=== PATIENT | male | born 1990 | race Caucasian/White ===

== ENCOUNTER 2018-01-21 19:48 | Inpatient (IN) ==
--- NOTE | 2018-01-21 22:21 | CT ---
EXAM DATE: 01/21/2018 10:01 PM EDT AGE/SEX: 27 years / Male INDICATIONS: Post op abscess drainage today at [facility]. Come's in with severe pain. CLINICAL DATA: This is the patient's initial encounter. Patient reports that signs and symptoms have been present for 1 day and indicates a pain score of 10/10. MEDICAL/SURGICAL HISTORY: None. None. RADIATION DOSE: 12.25 CTDI (mGy) COMPARISON: No prior exams available for comparison. TECHNIQUE: Multiple contiguous axial images were acquired using a multirow detector CT scanner witho ut contrast. Multiplanar reconstruction was performed in the sagittal and coronal planes. Using aut omated exposure control and adjustment of the mA and/or kV according to patient size, radiation dose was kept as low as reasonably achievable to obtain optimal diagnostic quality images. DICOM format i mage data is available electronically for review and comparison. FINDINGS: Ill-defined soft tissue edema of the upper arm. Cutaneous staple line is seen anteriorly. There is ed mario in and around the biceps brachia muscle. Multiple foci of gas are seen in the soft tissues adjace nt to the biceps muscle. Surgical drain is in place extending into the biceps muscle. Discretely defi aidee rounded fluid collection is not seen. No evidence of focal bone erosion. No evidence fracture. CONCLUSION: Soft tissue edema and gas and around the biceps muscle. Surgical drain also seen within the biceps mu scle and cutaneous jeanette overlie muscle. Findings indicate recent surgery. Edema and gas are nonspe cific and could represent immediate postsurgical findings or findings of infection. No defined absces s or bone erosion identified. Electronically signed by: Ariel Watkins MD 01/21/2018 10:20 PM EDT
[2018-01-21 23:15] LABS: Baso % (Auto) 0.2 % (0.0-2.0); Eos % (Auto) 0.2 % (0.0-4.0); Hemoglobin 12.3 gm/dL (13.0-17.0); Lymph # (Auto) 2.7 th/mm3 (1.0-4.8); Lymph % (Auto) 14.6 % (9.0-44.0); Mean Corpuscular HGB Conc 33.2 % (32.0-36.0); Mean Corpuscular Hemoglobin 29.5 pg (27.0-34.0); Mean Corpuscular Volume 88.7 fL (80.0-100.0); Mean Platelet Volume 9.3 fL (7.0-11.0); Mono # (Auto) 1.5 th/mm3 (0.0-0.9); Mono % (Auto) 8.3 % (0.0-8.0); Neut # (Auto) 14.2 th/mm3 (1.8-7.7); Neut % (Auto) 76.7 % (16.0-70.0); Platelet Count 217 th/mm3 (150-450); Red Blood Count 4.17 mil/mm3 (4.50-5.90); Red Cell Distribution Width 13.7 % (11.6-17.2); White Blood Count 18.5 th/mm3 (4.0-11.0)
[2018-01-21 23:34] LABS: Alanine Aminotransferase 33 U/L (12-78); Albumin 3.1 g/dL (3.4-5.0); Anion Gap 10 meq/L (5-15); Aspartate Aminotransferase 20 U/L (15-37); Blood Urea Nitrogen 7 mg/dL (7-18); Calcium 8.8 mg/dL (8.5-10.1); Carbon Dioxide 25.3 meq/L (21.0-32.0); Chloride 109 meq/L (98-107); Glomerular Filtration Rate Greater Than 89 mL/min (>89); Glucose,Random 83 mg/dL (74-106); Potassium 3.9 meq/L (3.5-5.1); Sodium 144 meq/L (136-145)
[2018-01-21 23:36] LABS: Alkaline Phosphatase 84 U/L (45-117); Total Protein 7.4 g/dL (6.4-8.2)
[2018-01-22] MEDS ORDERED: Ciprofloxacin 400 MG/200 ML 400 MG/200 ML PIGGYBACK IV.SIG ONE (00:29)
[2018-01-22] MEDS ORDERED: Vancomycin Inj 1,250 MG in Sodium Chlor 0.9% Inj 250 ML IV.SIG ONE (00:29)
[2018-01-22] MEDS ORDERED: Clindamycin 900 mg/NS Premix 900 MG/50 ML PIGGYBACK IV.SIG STA (00:29)
[2018-01-22] MEDS ORDERED: Bisacodyl 10 MG Supp RECTAL PRN (00:32)
[2018-01-22] MEDS ORDERED: Acetaminophen 325 MG Tablet PO PRN (00:32)
--- NOTE | 2018-01-22 00:40 | ED ---
HPI General Chief complaint: Medical Clearance Stated complaint: Medical clear Time Seen by Provider: 01/21/18 21:09 Source: patient Mode of arrival: ambulatory Limitations: no limitations History of Present Illness HPI narrative: Patient is a 27 year old male who comes in with an infection to his left upper arm. He was at [facility] where he had a large abscess drained from his muscle today. He says he did not like the way he was treated there, so he left. He has a drain in place and he says he knows he needs antibiotics, so he came here. He denies any fevers. He says this started a few days ago with pain to his lower arm that spread to the upper arm. Severity is mild to moderate. Related Data Allergies Allergy/AdvReac Type Severity Reaction Status Date / Time penicillin G Allergy Severe Anaphylaxis Verified 01/21/18 20:18 Iodinated Contrast- Oral and Allergy Edema Verified 01/21/18 20:18 IV Dye [Contrast] CILLINS Allergy Intermediate RASH/AIRWAY Uncoded 06/06/06 16:38 Review of Systems ROS: all other systems reviewed are negative Constitutional Denies chills and Denies fever(s) ENT Denies dizziness Cardiovascular Denies chest pain and Denies dyspnea Respiratory Denies cough Gastrointestinal Denies nausea and Denies vomiting Musculoskeletal Reports myalgias Integumentary/Breasts Reports wounds Neurologic Denies focal weakness and Denies numbness PMFSH Medical History Medical History Asthma (Acute) Surgical History Surgical History History of surgery on upper extremity (Acute) Social History Social History Substance History: Past History Smoking Status: Current every day smoker Tobacco Type: Cigarettes How Often Do You Have a Drink Containing Alcohol: Monthly or less Recent Travel in [facility] within the Last 8 Weeks: No Recent Out of Country Travel within the Last 8 Weeks: No Immunization History Tetanus Immunization: >5 Years Hx Influenza Vaccine This Season: No Exam Narrative Exam Narrative: GENERAL: Awake and alert, in no acute distress. SKIN: Drain in place to the left upper arm, bandaged. HEAD: Atraumatic. Normocephalic. EYES: Pupils equal and round. No scleral icterus. ENT: Mucous membranes pink and moist. NECK: Trachea midline. No JVD. CARDIOVASCULAR: Regular rate and rhythm. No murmur appreciated. RESPIRATORY: No accessory muscle use. Clear to auscultation. Breath sounds equal bilaterally. MUSCULOSKELETAL: No obvious deformities. No clubbing. No cyanosis. Left arm bandaged with drain in place. NEUROLOGICAL: Awake and alert. No obvious cranial nerve deficits. Motor grossly within normal limits. Normal speech. PSYCHIATRIC: Appropriate mood and affect; insight and judgment normal. Course Initial Documented Vital Signs Temperature 98.4 F 01/21/18 20:18 Pulse Rate 99 H 01/21/18 20:18 Respiratory Rate 18 01/21/18 20:18 Blood Pressure 156/94 H 01/21/18 20:18 Pulse Oximetry 99 01/21/18 20:18 Last Documented Vital Signs Temperature 98.4 F 01/21/18 20:18 Pulse Rate 75 01/21/18 22:40 Respiratory Rate 18 01/21/18 22:40 Blood Pressure 155/108 H 01/21/18 22:40 Pulse Oximetry 99 01/21/18 22:40 Medical Decision Making [facility] Narrative Medical decision making narrative: Patient is a 27-year-old male who comes in due to an abscess that was drained on his left arm surgically today. Arm is bandaged with a drain in place. Records obtained from [facility] indicate that Dr. Vasques orthopedics drained His arm today. He was on Cipro, clindamycin, vancomycin there. This was ordered for him. I spoke with the PA for Dr. Vasques who says the patient needs to be admitted for IV antibiotics. Patient admitted for further management. Medical Screen Exam Complete: Yes Emergency Medical Condition: Yes Differential Diagnosis Differential Diagnosis: Cellulitis versus abscess versus osteomyelitis Medical Records Medical records reviewed: Yes I reviewed the patient's medical records. Lab Data Lab results reviewed: Yes I reviewed the patient's lab results. Result diagrams: 01/21/18 22:49 01/21/18 22:49 Lab Results 01/21/18 01/21/18 Range/Units 22:49 22:49 WBC 18.5 H (4.0-11.0) th/mm3 RBC 4.17 L (4.50-5.90) mil/mm3 Hgb 12.3 L (13.0-17.0) gm/dL Hct 37.0 L (39.0-51.0) % MCV 88.7 (80.0-100.0) fL MCH 29.5 (27.0-34.0) pg MCHC 33.2 (32.0-36.0) % RDW 13.7 (11.6-17.2) % Plt Count 217 (150-450) th/mm3 MPV 9.3 (7.0-11.0) fL Neut % (Auto) 76.7 H (16.0-70.0) % Lymph % (Auto) 14.6 (9.0-44.0) % Mcintosh % (Auto) 8.3 H (0.0-8.0) % Eos % (Auto) 0.2 (0.0-4.0) % Baso % (Auto) 0.2 (0.0-2.0) % Neut # (Auto) 14.2 H (1.8-7.7) th/mm3 Lymph # (Auto) 2.7 (1.0-4.8) th/mm3 Mcintosh # (Auto) 1.5 H (0.0-0.9) th/mm3 Eos # (Auto) 0.0 (0.0-0.4) th/mm3 Baso # (Auto) 0.0 (0.0-0.2) th/mm3 WBC Differential . Differential Comment Auto diff final Sodium 144 (136-145) meq/L Potassium 3.9 (3.5-5.1) meq/L Chloride 109 H (98-107) meq/L Carbon Dioxide 25.3 (21.0-32.0) meq/L Anion Gap 10 (5-15) meq/L BUN 7 (7-18) mg/dL Creatinine 0.63 (0.60-1.30) mg/dL Estimated GFR Greater than 89 (>89) mL/min Random Glucose 83 (74-106) mg/dL Calcium 8.8 (8.5-10.1) mg/dL Total Bilirubin 0.8 (0.2-1.0) mg/dL AST 20 (15-37) U/L ALT 33 (12-78) U/L Alkaline Phosphatase 84 (45-117) U/L Total Protein 7.4 (6.4-8.2) g/dL Albumin 3.1 L (3.4-5.0) g/dL Imaging Data Radiologist's impression: Humerus CT 01/21/18 21:27 CONCLUSION: Soft tissue edema and gas and around the biceps muscle. Surgical drain also seen within the biceps muscle and cutaneous jeanette overlie muscle. Findings indicate recent surgery. Edema and gas are nonspecific and could represent immediate postsurgical findings or findings of infection. No defined abscess or bone erosion identified. Discharge Plan Discharge Disposition Patient Disposition: 30 Still Patient Discharge Condition Condition: Stable Discharge Details Diagnosis: Cellulitis and abscess of upper arm and forearm Physicians Team ED Provider: Odessa Faye Primary Care Provider: UNKNOWN, Attending Provider: Cristin Knight Other Providers: Jessee Vasques Discharge Interventions Interventions: Vital Signs Last Done: 01/21/18 22:40 Status ED Status: Admitted Patient
--- NOTE | 2018-01-22 01:08 | P.HPIM ---
History of Present Illness Primary Care Physician: UNKNOWN History of Present Illness: This is a 27-year-old male with PMH of IVDU who presented to ER after having LUE Biceps Abscess drained at [facility]. Per records, pt initially presented to [facility] 01/17/18 for LUE swelling/erythema, diagnosed w/ thrombophlebitis and sent out on antibiotics, however pt didn't fill prescription. Returned to [facility] on 01/20/18 w/ worsening erythema/pain, admitted for Sepsis w/ Left Biceps Cellulitis and Abscess, CT LUE showing diffuse myositis of biceps w/ abscess, Doppler LUE negative for DVT. Was seen by Dr. Martinez and underwent I& D w/ drain placement 01/21/18, has been on Vanc/Clinda/Cipro. States he LEFT AMA from because he was upset that nursing staff wouldn't allow his mother to visit him. Reports no IVDU for 2wks. On arrival, BP 156/94, HR 99, O2 sat 99% on RA, Afebrile. WBC 18.5. Chemistry unremarkable. CT Humerus soft tissue edema and gas around biceps muscle, surgical drain seen within the biceps muscle. Dr. Martinez consulted, recommended admission for continued antibiotics. - Diagnosis (1) Cellulitis and abscess of upper arm and forearm (2) IVDU (intravenous drug user) Inpatient Certification: I certify that the inpatient services were ordered in accordance with Medicare regulations governing the order. This includes certification that hospital inpatient services are reasonable and necessary and in the case of services not specified as inpatient-only under 42 CFR 419.22(n), that they are appropriately provided as inpatient services in accordance to with the 2-midnight benchmark under 43 CFR 412.3(e) Estimated Total Length of Stay (Days): 2 Plans for Post Hospital Care: Not yet determined Review of Systems PAST FAMILY HISTORY: Reviewed. No h/o DM or CAD All other systems reviewed negative except as stated in HPI PMFSH - History History Provided By: Patient - Medical History Medical History: Medical History (Last Reviewed 01/22/18 @ 00:46 by Odessa Faye MD) Asthma - Surgical History Surgical History: Surgical History (Last Reviewed 01/22/18 @ 00:46 by Odessa Faye MD) History of surgery on upper extremity - Tobacco History Tobacco Use In Past 30 Days: Yes Smoking Status: Current every day smoker Tobacco Type: Cigarettes - Alcohol History How Often Do You Have a Drink Containing Alcohol: Monthly or less - Substance Use History Substance History: Past History - Travel History Recent Travel in the [place] Within the Last 8 Weeks: No Recent Travel Out of the Country Within the Last 8 Weeks: No - Immunization History Tetanus Immunization: >5 Years Hx Influenza Vaccine This Season: No Medications and Allergies Active Medications: Active Medications Acetaminophen (Tylenol) 650 mg PO Q4H PRN PRN Reason: Temp > 100.4 Al Hydroxide/Mg Hydroxide (Milk Of Magnesia Liq) 30 ml PO Q12H PRN PRN Reason: Mild Constipation Bisacodyl (Dulcolax Supp) 10 mg RECTAL DAILY PRN PRN Reason: SEVERE CONSITIPATION Ciprofloxacin/Dextrose (Cipro 400 Mg/200 Ml Inj) 400 mg in 200 mls @ 200 mls/ hr IV.SIG ONCE ONE Stop: 01/22/18 01:28 Vancomycin HCl 1,250 mg/ (Sodium Chloride) 262.5 mls @ 250 mls/hr IV.SIG ONCE ONE Stop: 01/22/18 01:31 Lactulose (Lactulose Liq) 30 ml PO DAILY PRN PRN Reason: SEVERE CONSITIPATION Ondansetron HCl (Zofran Inj) 4 mg IV.PUSH Q6H PRN PRN Reason: NAUSEA OR VOMITING Senna/Docusate Sodium (Eva-Colace) 1 tab PO BID CONY Sennosides (Senokot) 17.2 mg PO Q12H PRN PRN Reason: Moderate Constipation Allergies Allergy/AdvReac Type Severity Reaction Status Date / Time penicillin G Allergy Severe Anaphylaxis Verified 01/21/18 20:18 Iodinated Contrast- Oral and Allergy Edema Verified 01/21/18 20:18 IV Dye [Contrast] CILLINS Allergy Intermediate RASH/AIRWAY Uncoded 06/06/06 16:38 Home Medications Medication Instructions Recorded Confirmed Type No Known Home Medications 01/22/18 01/22/18 History Exam Vital signs: Vital Signs 01/21/18 20:18 01/21/18 22:40 Temperature 98.4 F Pulse Rate 99 H 75 Respiratory Rate 18 18 Blood Pressure 156/94 H 155/108 H Pulse Oximetry 99 99 Intake & Output 01/21/18 01/21/18 01/22/18 06:59 18:59 06:59 Weight 79.379 kg Narrative: PE: GENERAL: Pleasant young white male in no acute distress. SKIN: Focused skin assessment warm and dry. HEENT: PERRLA, EOMI. No scleral icterus or conjunctival pallor. No lid lag or facial droop. CARDIOVASCULAR: Regular rate and rhythm. No obvious murmurs to auscultation. No chest tenderness to palpation. RESPIRATORY: No obvious rhonchi or wheezing. Clear to auscultation. Breath sounds equal bilaterally. GASTROINTESTINAL: Abdomen soft, non-tender, nondistended. BS normal. MUSCULOSKELETAL: Extremities without clubbing, cyanosis, or edema. No obvious deformities. LUE bandage in place, +drain. NEUROLOGICAL: Awake, alert and oriented x4. No focal neurologic deficits. Moving both upper and lower extremities spontaneously. PSYCHIATRIC: Appropriate mood and affect. Insight and judgment normal. Results - Labs CBC & Chem 7: 01/21/18 22:49 01/21/18 22:49 Labs: Short CBC 01/21/18 Range/Units 22:49 WBC 18.5 H (4.0-11.0) th/mm3 Hgb 12.3 L (13.0-17.0) gm/dL Hct 37.0 L (39.0-51.0) % Plt Count 217 (150-450) th/mm3 BMP 01/21/18 22:49 Sodium 144 Potassium 3.9 Chloride 109 H Carbon Dioxide 25.3 BUN 7 Creatinine 0.63 Calcium 8.8 Liver Function 01/21/18 Range/Units 22:49 Total Bilirubin 0.8 (0.2-1.0) mg/dL AST 20 (15-37) U/L ALT 33 (12-78) U/L Alkaline Phosphatase 84 (45-117) U/L Albumin 3.1 L (3.4-5.0) g/dL - Imaging Impressions Humerus CT 01/21/18 21:27 CONCLUSION: Soft tissue edema and gas and around the biceps muscle. Surgical drain also seen within the biceps muscle and cutaneous jeanette overlie muscle. Findings indicate recent surgery. Edema and gas are nonspecific and could represent immediate postsurgical findings or findings of infection. No defined abscess or bone erosion identified. Caprini VTE Risk Assessment Caprini VTE Risk Assessment: No/Low Risk (score <= 1) Caprini Risk Assessment Model: Point Value = 1 Point Value = 2 Point Value = 3 Point Value = 5 Age 41-60 Minor surgery BMI > 25 kg/m2 Swollen legs Varicose veins or History of unexplained or recurrent spontaneous Oral contraceptives or hormone replacement Sepsis (< 1 month) Serious lung disease, including pneumonia (< 1 month) Abnormal pulmonary function Acute myocardial infarction Congestive heart failure (< 1 month) History of inflammatory bowel disease Medical patient at bed rest Age 61-74 Arthroscopic surgery Major open surgery (> 45 min) Laparoscopic surgery (> 45 min) Malignancy Confined to bed (> 72 hours) Immobilizing plaster cast Central venous access Age >= 75 History of VTE Family history of VTE Factor V Leiden Prothrombin [id number] Lupus anticoagulant Anticardiolipin antibodies Elevated serum homocysteine Heparin-induced thrombocytopenia Other congenital or acquired thrombophilia Stroke (< 1 month) Elective arthroplasty Hip, pelvis, or leg fracture Acute spinal cord injury (< 1 month) Prophylaxis Regimen: Total Risk Factor Score Risk Level Prophylaxis Regimen 0-1 Low Early ambulation 2 Moderate Order ONE of the following: *Sequential Compression Device (SCD) *Heparin 5000 units SQ BID 3-4 Higher Order ONE of the following medications: *Heparin 5000 units SQ TID *Enoxaparin/Lovenox 40 mg SQ daily (WT < 150 kg, CrCl > 30 mL/min) *Enoxaparin/Lovenox 30 mg SQ daily (WT < 150 kg, CrCl > 10-29 mL/min) *Enoxaparin/Lovenox 30 mg SQ BID (WT < 150 kg, CrCl > 30 mL/min) AND/OR *Sequential Compression Device (SCD) 5 or more Highest Order ONE of the following medications: *Heparin 5000 units SQ TID (Preferred with Epidurals) *Enoxaparin/Lovenox 40 mg SQ daily (WT < 150 kg, CrCl > 30 mL/min) *Enoxaparin/Lovenox 30 mg SQ daily (WT < 150 kg, CrCl > 10-29 mL/min) *Enoxaparin/Lovenox 30 mg SQ BID (WT < 150 kg, CrCl > 30 mL/min) AND *Sequential Compression Device (SCD) Assessment and Plan - Assessment (1) Cellulitis and abscess of upper arm and forearm Status: Acute (2) IVDU (intravenous drug user) Code(s): F19.90 - Other psychoactive substance use, unspecified, uncomplicated Status: Acute - Plan A/P: 1. LUE Cellulitis/Abscess: recent admit to [facility] 01/20/18, CT LUE w/ diffuse myositis and abscess of biceps muscle, s/p I&D w/ drain placement by Dr. Martinez 01/21/18, LEFT AMA and presents here for admission. CT Humerus w/ soft tissue edema and gas w/ surgical drain indicative of recent surgery, images reviewed. Records obtained from [facility] and in chart, pending micro from surgical cultures. Continue w/ IV Vanc/Cipro/Clinda, consult ID for further eval/recommendations. Consult Dr. Martinez. 2. IVDU: Reports last use 2wks ago, Ativan prn as needed. 3. DVT Prophylaxis: SCD/Teds 4. Social work for d/c planning as needed 5. Case discussed w/ ER physician at length, labs/records/imaging reviewed by me.
[2018-01-22] MEDS: Morphine Inj 4 MG/ML Vial IV.PUSH PRN ×4 (02:13→11:35)
[2018-01-22] MEDS ORDERED: Vancomycin Consult Pharmacy OTHER PRN (02:34)
[2018-01-22] MEDS: Clindamycin 900 mg/NS Premix 900 MG/50 ML PIGGYBACK IV.SIG SCH ×2 (08:09→15:43)
[2018-01-22] MEDS: Senna/Docusate Sodium 8.6/50 MG Tablet PO SCH ×2 (08:13→22:25)
[2018-01-22] MEDS: Vancomycin Inj 1,000 MG in Sodium Chlor 0.9% Inj 250 ML IV.SIG SCH ×2 (09:26→17:00)
--- NOTE | 2018-01-22 10:22 | P.PNOP ---
Subjective Interval history: Irrigation debridement yesterday at [facility] for left biceps abscess. Left AMA and presented to emergency department [place] Physical Exam Vital signs: Vital Signs 01/21/18 20:18 01/21/18 22:40 01/22/18 01:44 Temperature 98.4 F 98.2 F Pulse Rate 99 H 75 85 Respiratory Rate 18 18 20 Blood Pressure 156/94 H 155/108 H 120/67 Pulse Oximetry 99 99 99 01/22/18 04:00 01/22/18 08:00 Temperature 98.2 F 98.6 F Pulse Rate 95 H 94 H Respiratory Rate 20 20 Blood Pressure 122/77 148/86 H Pulse Oximetry 99 95 Intake & Output 01/21/18 01/22/18 01/22/18 18:59 06:59 18:59 Intake Total 462.5 / 462.5 100 / 100 Output Total Balance 452.5 / 452.5 100 / 100 Weight 78.7 kg Intake: IV 462.5 / 462.5 100 / 100 Cipro 400 MG/200 ML Inj 400 mg 200 / 200 In 200 ml @ 200 mls/hr IV.SIG ONCE ONE Rx#:[id number] Cleocin 900 mg/NS Premix 900 mg 100 / 100 In 50 ml @ 100 mls/hr IV.SIG Q8H CONY Rx#:[id number] Vancomycin Inj 1,250 MG In NS 262.5 / 262.5 Inj 250 ML @ 250 mls/hr IV.SIG ONCE ONE Rx#:[id number] Output: Wound Drainage Left Upper Arm Other: # Voids 1 Date of Last Bowel Movement 01/20/18 Weight On Admission 77.7 kg Narrative: Left upper extremity: Clean dry dressings intact with drain in place. Intact sensation distally with full extension flexion of all fingers. He has some tenderness with extension of the elbow over the biceps. Elbow range of motion is from 20 -110 Results - Labs CBC & Chem 7: 01/21/18 22:49 01/21/18 22:49 Laboratory Results - last 24 hr 01/21/18 01/21/18 22:49 22:49 WBC 18.5 H RBC 4.17 L Hgb 12.3 L Hct 37.0 L MCV 88.7 MCH 29.5 MCHC 33.2 RDW 13.7 Plt Count 217 MPV 9.3 Neut % (Auto) 76.7 H Lymph % (Auto) 14.6 Cherry % (Auto) 8.3 H Eos % (Auto) 0.2 Baso % (Auto) 0.2 Neut # (Auto) 14.2 H Lymph # (Auto) 2.7 Cherry # (Auto) 1.5 H Eos # (Auto) 0.0 Baso # (Auto) 0.0 WBC Differential . Differential Comment Auto diff final Sodium 144 Potassium 3.9 Chloride 109 H Carbon Dioxide 25.3 Anion Gap 10 BUN 7 Creatinine 0.63 Estimated GFR Greater than 89 Random Glucose 83 Calcium 8.8 Total Bilirubin 0.8 AST 20 ALT 33 Alkaline Phosphatase 84 Total Protein 7.4 Albumin 3.1 L - Imaging Impressions Humerus CT 01/21/18 21:27 CONCLUSION: Soft tissue edema and gas and around the biceps muscle. Surgical drain also seen within the biceps muscle and cutaneous jeanette overlie muscle. Findings indicate recent surgery. Edema and gas are nonspecific and could represent immediate postsurgical findings or findings of infection. No defined abscess or bone erosion identified. Assessment and Plan - Assessment and Plan Abscess with irrigation debridement of left biceps POD 1 Begin daily dressing changes POD 2. Xeroform over the incision and continue drain care Consultation for infectious disease for antibiotic management Occupational therapy for passive and active range of motion of shoulder and elbow
[2018-01-22] MEDS: Ciprofloxacin 400 MG/200 ML 400 MG/200 ML PIGGYBACK IV.SIG SCH ×2 (11:35→23:05)
[2018-01-23] MEDS: Clindamycin 900 mg/NS Premix 900 MG/50 ML PIGGYBACK IV.SIG SCH ×3 (01:26→18:03)
[2018-01-23] MEDS ORDERED: Pharmacy Ordered Lab Info OTHER ONE (01:45)
[2018-01-23] MEDS: Vancomycin Inj 1,000 MG in Sodium Chlor 0.9% Inj 250 ML IV.SIG SCH ×4 (02:07→20:51)
[2018-01-23 07:32] LABS: Baso # (Auto) 0.1 th/mm3 (0.0-0.2); Baso % (Auto) 0.9 % (0.0-2.0); Eos # (Auto) 0.1 th/mm3 (0.0-0.4); Eos % (Auto) 1.7 % (0.0-4.0); Hematocrit 35.7 % (39.0-51.0); Hemoglobin 11.9 gm/dL (13.0-17.0); Mean Corpuscular HGB Conc 33.3 % (32.0-36.0); Mean Corpuscular Hemoglobin 29.9 pg (27.0-34.0); Mean Corpuscular Volume 89.7 fL (80.0-100.0); Mean Platelet Volume 9.8 fL (7.0-11.0); Mono # (Auto) 0.5 th/mm3 (0.0-0.9); Mono % (Auto) 5.9 % (0.0-8.0); Neut # (Auto) 4.3 th/mm3 (1.8-7.7); Neut % (Auto) 53.5 % (16.0-70.0); Platelet Count 247 th/mm3 (150-450); Red Blood Count 3.98 mil/mm3 (4.50-5.90); Red Cell Distribution Width 14.2 % (11.6-17.2)
[2018-01-23 07:46] LABS: Alanine Aminotransferase 62 U/L (12-78); Albumin 2.4 g/dL (3.4-5.0); Anion Gap 7 meq/L (5-15); Aspartate Aminotransferase 35 U/L (15-37); Calcium 8.4 mg/dL (8.5-10.1); Carbon Dioxide 26.6 meq/L (21.0-32.0); Chloride 111 meq/L (98-107); Glomerular Filtration Rate Greater Than 89 mL/min (>89); Glucose,Random 101 mg/dL (74-106); Sodium 145 meq/L (136-145)
[2018-01-23 07:56] LABS: Alkaline Phosphatase 72 U/L (45-117); Blood Urea Nitrogen 11 mg/dL (7-18); Total Protein 6.1 g/dL (6.4-8.2)
[2018-01-23] MEDS: Senna/Docusate Sodium 8.6/50 MG Tablet PO SCH ×2 (09:54→20:51)
[2018-01-23] MEDS: Ciprofloxacin 400 MG/200 ML 400 MG/200 ML PIGGYBACK IV.SIG SCH ×2 (11:36→23:35)
--- NOTE | 2018-01-23 16:20 | P.CONID ---
History of Present Illness Service: Infectious disease Consult date: 01/23/18 Requesting Physician: Ronak Field Reason for Consult: Evaluate patient with muscle abscess, assist with Abx Primary Care Provider: UNKNOWN History of Present Illness: Patient seen and examined. Records reviewed. Patient is a 27-year-old male, presented to the hospital for further management of the abscess in his left upper extremity. His problem started around January 18 when he started having some pain over his left antecubital fossa. Patient has known IV drug use, but denies any injection in his upper arm. He stated that the last time he had used IV drugs was about 2 weeks prior to his admission at [facility]. He does not recall having any injury. He does a lot of manual work. He went to the emergency room at [facility] on January 18, and looks like he was diagnosed with some kind of a phlebitis, was given some medications and I believe some antibiotics. Patient however did not take his medication, and soon after that he started noticing redness going up his upper arm. It was getting more painful and swollen, so he went back to [facility] and he was admitted on January 20. He was admitted as sepsis, and imaging study showed evidence of abscess in his biceps. He underwent I&D of the abscess in the biceps area. Patient however signed out AMA after his surgery, and presented here at [facility] for further evaluation and treatment. He is currently afebrile. His white count on admission was 18,000. CT of the left upper extremity showing evidence of edema and some gas in the biceps, but no drainable abscess seen. Infectious disease consultation has been requested to assist with treatment and antibiotic management. Review of Systems Constitutional: Denies chills, Denies fever(s), Denies night sweats Eyes: Denies discharge, Denies dry eyes, Denies itchy eyes Ears, Nose, Mouth, and Throat: Denies difficulty swallowing, Denies dry mouth, Denies ear discharge, Denies ear pain, Denies facial pain, Denies pain with swallowing, Denies sore throat Cardiovascular: Denies chest pain, Denies shortness of breath Respiratory: Denies chest congestion, Denies cough, Denies shortness of breath Gastrointestinal: Denies abdominal pain, Denies constipation, Denies difficulty swallowing, Denies loose stools, Denies nausea, Denies pain with swallowing, Denies vomiting Genitourinary: Denies difficulty urinating, Denies painful urination Musculoskeletal: Denies joint pain, Denies joint swelling Skin/Breast: Denies rash, Denies sores Neurologic: Denies headache(s), Denies localized weakness Psychiatric: Denies confusion [facility] - History History Provided By: Patient - Medical History Medical History: Medical History (Last Updated 01/23/18 @ 16:19 by Meaghan Fuentes MD) Asthma IVDU (intravenous drug user) - Surgical History Surgical History: Surgical History (Last Reviewed 01/23/18 @ 16:19 by Meaghan Fuentes MD) History of surgery on upper extremity - Tobacco History Second Hand Smoke Exposure: No Tobacco Use In Past 30 Days: Yes Smoking Status: Current every day smoker Tobacco Type: Cigarettes - Alcohol History How Often Do You Have a Drink Containing Alcohol: Monthly or less - Substance Use History Substance History: Past History - Travel History Recent Travel in the [facility] Within the Last 8 Weeks: No Recent Travel Out of the Country Within the Last 8 Weeks: No - Immunization History Tetanus Immunization: >5 Years Hx Influenza Vaccine This Season: No Medications and Allergies Active Medications: Active Medications Acetaminophen (Tylenol) 650 mg PO Q4H PRN PRN Reason: Temp > 100.4 Hydrocodone Bitart/Acetaminophen (Edon 10/325) 1 tab PO Q4H PRN PRN Reason: PAIN SCALE 6 TO 10 Last Admin: 01/23/18 14:55 Dose: 1 tab Al Hydroxide/Mg Hydroxide (Milk Of Magndebra Liq) 30 ml PO Q12H PRN PRN Reason: Mild Constipation Bisacodyl (Dulcolax Supp) 10 mg RECTAL DAILY PRN PRN Reason: SEVERE CONSITIPATION Ciprofloxacin/Dextrose (Cipro 400 Mg/200 Ml Inj) 400 mg in 200 mls @ 200 mls/ hr IV.SIG Q12H [facility] Last Admin: 01/23/18 11:36 Dose: 200 mls/hr Clindamycin/Sodium Chloride (Cleocin 900 Mg/Ns Premix) 900 mg in 50 mls @ 100 mls/hr IV.SIG Q8H [facility] Last Admin: 01/23/18 09:46 Dose: 100 mls/hr Vancomycin HCl 1,000 mg/ (Sodium Chloride) 250 mls @ 250 mls/hr IV.SIG Q8H [facility] Last Admin: 01/23/18 13:32 Dose: 250 mls/hr Lactulose (Lactulose Liq) 30 ml PO DAILY PRN PRN Reason: SEVERE CONSITIPATION Miscellaneous Information ([facility] Ordered Lab Info) 0 each OTHER ONCE ONE Stop: 01/24/18 11:46 Ondansetron HCl (Zofran Inj) 4 mg IV.PUSH Q6H PRN PRN Reason: NAUSEA OR VOMITING Pharmacy Profile Note (Vancomycin Consult Pharmacy) 1 each OTHER UNSCH PRN PRN Reason: Pharmacy to dose Senna/Docusate Sodium (Eva-Colace) 1 tab PO BID [facility] Last Admin: 01/23/18 09:54 Dose: Not Given Sennosides (Senokot) 17.2 mg PO Q12H PRN PRN Reason: Moderate Constipation Allergies Allergy/AdvReac Type Severity Reaction Status Date / Time penicillin G Allergy Severe Anaphylaxis Verified 01/21/18 20:18 Iodinated Contrast- Oral and Allergy Edema Verified 01/21/18 20:18 IV Dye [Contrast] CILLINS Allergy Intermediate RASH/AIRWAY Uncoded 06/06/06 16:38 Home Medications Medication Instructions Recorded Confirmed Type No Known Home Medications 01/22/18 01/22/18 History Exam Vital signs: Vital Signs 01/22/18 20:00 01/23/18 00:00 01/23/18 04:00 Temperature 98 F 98.3 F 97.8 F Pulse Rate 84 92 H 86 Respiratory Rate 18 20 20 Blood Pressure 140/80 145/97 H 131/77 Pulse Oximetry 98 94 L 99 01/23/18 08:00 01/23/18 12:00 Temperature 97.6 F 97.3 F L Pulse Rate 65 72 Respiratory Rate 16 14 Blood Pressure 137/98 H 129/78 Pulse Oximetry 95 99 Intake & Output 01/22/18 01/23/18 01/23/18 18:59 06:59 18:59 Intake Total 2039 / 2039 200 / 200 Output Total 410 / 410 Balance 2029 / 2029 -210 / -210 Weight 72.4 kg Intake: IV 850 / 850 200 / 200 Cipro 400 MG/200 ML Inj 400 mg 200 / 200 200 / 200 In 200 ml @ 200 mls/hr IV.SIG Q12H [facility] Rx#:[id number] Cleocin 900 mg/NS Premix 900 mg 150 / 150 In 50 ml @ 100 mls/hr IV.SIG Q8H [facility] Rx#:[id number] Vancomycin Inj 1,000 MG In NS 500 / 500 Inj 250 ML @ 250 mls/hr IV.SIG Q8H [facility] Rx#:[id number] Oral 1190 / 1190 Output: Urine 400 / 400 Wound Drainage Left Upper Arm Other: # Voids 4 1 Date of Last Bowel Movement 01/23/18 # Bowel Movements 2 Narrative: Physical Examination GENERAL: Patient is a well-nourished, well-developed male, awake and alert, not in respiratory distress. SKIN: Cool and dry. No generalized rash, no ecchymoses and no evidence of embolic lesions. Has trach jovel both hands and forearms HEAD: Atraumatic. Normocephalic. No temporal wasting, or tenderness. EYES: [place] conjunctiva. No petechia or hemorrhage. Pupils equal, round and reactive to light. Extraocular movements full and intact. No scleral icterus. No injection or drainage. EARS, NOSE AND THROAT: Nose without bleeding or purulent nasal discharge. No sinus tenderness. Mucous membranes pink and moist. No oral lesions noted. No exudate. No oral thrush. NECK: Trachea midline. Supple and not tender, no meningeal signs CARDIOVASCULAR: Regular rate and rhythm. No murmurs, rubs or gallops heard RESPIRATORY: Clear to auscultation. Breath sounds equal bilaterally. No rales , wheezing or rhonchi ABDOMEN: Soft, non-tender, nondistended. Bowel sounds present and normoactive. No guarding. No rebound. No organomegaly. EXTREMITIES: No clubbing, cyanosis, or edema. Has dry intact dressing in his L arm, has OSVALDO drain in place. No joint effusion, has good ROM. No calf tenderness. Well perfused and warm. NEUROLOGICAL: Awake and alert. Cranial nerves grossly intact. Motor grossly within normal limits. PSYCHIATRIC: Normal affect, calm and cooperative. LINE: No evidence of infection Results - Labs CBC & Chem 7: 01/23/18 07:02 01/23/18 07:02 Labs: Laboratory Results - last 24 hr 01/23/18 01/23/18 07:02 07:02 WBC 8.0 RBC 3.98 L Hgb 11.9 L Hct 35.7 L MCV 89.7 MCH 29.9 MCHC 33.3 RDW 14.2 Plt Count 247 MPV 9.8 Neut % (Auto) 53.5 Lymph % (Auto) 38.0 [place] % (Auto) 5.9 Eos % (Auto) 1.7 Baso % (Auto) 0.9 Neut # (Auto) 4.3 Lymph # (Auto) 3.0 [place] # (Auto) 0.5 Eos # (Auto) 0.1 Baso # (Auto) 0.1 WBC Differential . Differential Comment Auto diff final Sodium 145 Potassium 4.0 Chloride 111 H Carbon Dioxide 26.6 Anion Gap 7 BUN 11 Creatinine 0.82 Estimated GFR Greater than 89 Random Glucose 101 Calcium 8.4 L Total Bilirubin 0.2 AST 35 ALT 62 Alkaline Phosphatase 72 Total Protein 6.1 L D Albumin 2.4 L D - Imaging Humerus CT 01/21/18 21:27 CONCLUSION: Soft tissue edema and gas and around the biceps muscle. Surgical drain also seen within the biceps muscle and cutaneous jeanette overlie muscle. Findings indicate recent surgery. Edema and gas are nonspecific and could represent immediate postsurgical findings or findings of infection. No defined abscess or bone erosion identified. Assessment and Plan - Plan Impression Biceps muscle abscess L, S/P I and d No evidence of DVT LUE Known IVDU Severe allergy to PCN and cephalosporins Recommendation Follow C/S IV vanco and Cipro for now Adjust Abx once C/S available Agree with echo Monitor progress Will determine course of rx once work-up completed I will follow along with you Thank you for this consultation Explained plan to the patient
--- NOTE | 2018-01-23 17:02 | P.PNIM ---
Subjective Interval history: This is a 27-year-old male with PMH of IVDU who presented to ER after having LUE Biceps Abscess drained at [facility]. Per records, pt initially presented to [facility] 01/17/18 for LUE swelling/erythema, diagnosed w/ thrombophlebitis and sent out on antibiotics, however pt didn't fill prescription. Returned to [facility] on 01/20/18 w/ worsening erythema/pain, admitted for Sepsis w/ Left Biceps Cellulitis and Abscess, CT LUE showing diffuse myositis of biceps w/ abscess, Doppler LUE negative for DVT. Was seen by Dr. Martinez and underwent I& D w/ drain placement 01/21/18, has been on Vanc/Clinda/Cipro. States he LEFT AMA from because he was upset that nursing staff wouldn't allow his mother to visit him. Reports no IVDU for 2wks. On arrival, BP 156/94, HR 99, O2 sat 99% on RA, Afebrile. WBC 18.5. Chemistry unremarkable. CT Humerus soft tissue edema and gas around biceps muscle, surgical drain seen within the biceps muscle. Dr. Martinez consulted, recommended admission for continued antibiotics. 01-23 SEEN BY ID AND ORTHO ON VANCO AND CIPRO ECHO DW ID AND RN AND CM AM LABS Physical Exam Vital signs: Vital Signs 01/22/18 20:00 01/23/18 00:00 01/23/18 04:00 Temperature 98 F 98.3 F 97.8 F Pulse Rate 84 92 H 86 Respiratory Rate 18 20 20 Blood Pressure 140/80 145/97 H 131/77 Pulse Oximetry 98 94 L 99 01/23/18 08:00 01/23/18 12:00 Temperature 97.6 F 97.3 F L Pulse Rate 65 72 Respiratory Rate 16 14 Blood Pressure 137/98 H 129/78 Pulse Oximetry 95 99 Intake & Output 01/22/18 01/23/18 01/23/18 18:59 06:59 18:59 Intake Total 2039 200 / 200 Output Total 410 / 410 Balance 2029 -210 / -210 Weight 72.4 kg Intake: IV 850 / 850 200 / 200 Cipro 400 MG/200 ML Inj 400 mg 200 / 200 200 / 200 In 200 ml @ 200 mls/hr IV.SIG Q12H [facility] Rx#:[id number] Cleocin 900 mg/NS Premix 900 mg 150 / 150 In 50 ml @ 100 mls/hr IV.SIG Q8H [facility] Rx#:[id number] Vancomycin Inj 1,000 MG In NS 500 / 500 Inj 250 ML @ 250 mls/hr IV.SIG Q8H [facility] Rx#:[id number] Oral 1190 / 1190 Output: Urine 400 / 400 Wound Drainage Left Upper Arm Other: # Voids 4 1 Date of Last Bowel Movement 01/23/18 # Bowel Movements 2 Narrative: GENERAL: Pleasant young white male in no acute distress. SKIN: Focused skin assessment warm and dry. HEENT: PERRLA, EOMI. No scleral icterus or conjunctival pallor. No lid lag or facial droop. CARDIOVASCULAR: Regular rate and rhythm. No obvious murmurs to auscultation. No chest tenderness to palpation. RESPIRATORY: No obvious rhonchi or wheezing. Clear to auscultation. Breath sounds equal bilaterally. GASTROINTESTINAL: Abdomen soft, non-tender, nondistended. BS normal. MUSCULOSKELETAL: Extremities without clubbing, cyanosis, or edema. No obvious deformities. LUE bandage in place, +drain. NEUROLOGICAL: Awake, alert and oriented x4. No focal neurologic deficits. Moving both upper and lower extremities spontaneously. PSYCHIATRIC: Appropriate mood and affect. Insight and judgment normal. Results - Labs CBC & Chem 7: 01/23/18 07:02 01/23/18 07:02 Laboratory Results - last 24 hr 01/23/18 01/23/18 07:02 07:02 WBC 8.0 RBC 3.98 L Hgb 11.9 L Hct 35.7 L MCV 89.7 MCH 29.9 MCHC 33.3 RDW 14.2 Plt Count 247 MPV 9.8 Neut % (Auto) 53.5 Lymph % (Auto) 38.0 [place] % (Auto) 5.9 Eos % (Auto) 1.7 Baso % (Auto) 0.9 Neut # (Auto) 4.3 Lymph # (Auto) 3.0 [place] # (Auto) 0.5 Eos # (Auto) 0.1 Baso # (Auto) 0.1 WBC Differential . Differential Comment Auto diff final Sodium 145 Potassium 4.0 Chloride 111 H Carbon Dioxide 26.6 Anion Gap 7 BUN 11 Creatinine 0.82 Estimated GFR Greater than 89 Random Glucose 101 Calcium 8.4 L Total Bilirubin 0.2 AST 35 ALT 62 Alkaline Phosphatase 72 Total Protein 6.1 L D Albumin 2.4 L D - Imaging ITS Impressions Humerus CT 01/21/18 21:27 CONCLUSION: Soft tissue edema and gas and around the biceps muscle. Surgical drain also seen within the biceps muscle and cutaneous jeanette overlie muscle. Findings indicate recent surgery. Edema and gas are nonspecific and could represent immediate postsurgical findings or findings of infection. No defined abscess or bone erosion identified. Assessment and Plan - Assessment (1) Cellulitis and abscess of upper arm and forearm Status: Acute (2) IVDU (intravenous drug user) Code(s): F19.90 - Other psychoactive substance use, unspecified, uncomplicated Status: Acute - Plan 1. LUE Cellulitis/Abscess: recent admit to [facility] 01/20/18, CT LUE w/ diffuse myositis and abscess of biceps muscle, s/p I&D w/ drain placement by Dr. Martinez 01/21/18, LEFT AMA and presents here for admission. CT Humerus w/ soft tissue edema and gas w/ surgical drain indicative of recent surgery, images reviewed. Records obtained from [facility] and in chart, pending micro from surgical cultures. Continue w/ IV Vanc/Cipro/Clinda, consult ID for further eval/recommendations. Consult Dr. Martinez. DW ID 2. IVDU: Reports last use 2wks ago, Ativan prn as needed. - PROBABLY MORE RECENT 3. DVT Prophylaxis: SCD/Teds 4. Social work for d/c planning as needed Code Status: FULL CODE Discussed Condition With: RN AND PT AND CM Discharge Planning: WILL NEED ANTIBIOTICS PER ID
--- NOTE | 2018-01-23 17:14 | ECHRPT ---
Indication: HHD CONCLUSIONS The left ventricular systolic function is normal with an estimated ejection fraction in the range of 60-65%. Normal left ventricular size and wall thickness. No regional wall motion abnormalities are present. Nornal Diastolic Function. Normal right ventricular size and function. No significant Valvular heart disease. IVC is normal sized and collapses >50% with inspiration.. BP: / HR: Rhythm: Sinus MEASUREMENTS (Male / Female) Normal Values Technical Quality:Good 2D ECHO LV Diastolic Diameter PLAX 4.0 cm 4.2 - 5.9 / 3.9 - 5.3 cm LV Systolic Diameter PLAX 2.7 cm IVS Diastolic Thickness 0.9 cm 0.6 - 1.0 / 0.6 - 0.9 cm LVPW Diastolic Thickness 0.9 cm 0.6 - 1.0 / 0.6 - 0.9 cm LV Relative Wall Thickness 0.5 RV Internal Dim ED PLAX 3.1 cm LVOT Diameter 2.2 cm LA Systolic Diameter LX 2.7 cm 3.0 - 4.0 / 2.7 - 3.8 cm M-MODE Aortic Root Diameter MM 2.6 cm LA Systolic Diameter MM 2.8 cm LA Ao Ratio MM 1.1 AV Cusp Separation MM 2.2 cm DOPPLER AV Peak Velocity 133.0 cm/s AV Peak Gradient 7.1 mmHg LVOT Peak Velocity 97.7 cm/s LVOT Peak Gradient 3.8 mmHg AV Area Cont Eq pk 2.8 cm MV Area PHT 4.2 cm Mitral E Point Velocity 99.7 cm/s Mitral A Point Velocity 61.7 cm/s Mitral E to A Ratio 1.6 LV E' Lateral Velocity 20.6 cm/s Mitral E to LV E' Lateral Ratio 4.8 LV E' Septal Velocity 15.3 cm/s Mitral E to LV E' Septal Ratio 6.5 PV Peak Velocity 106.0 cm/s PV Peak Gradient 4.5 mmHg FINDINGS LEFT VENTRICLE The left ventricular systolic function is normal with an estimated ejection fraction in the range of 60-65%. Normal left ventricular size. Wall thickness is normal. No regional wall motion abnormalities are present. RIGHT VENTRICLE Normal right ventricular size and systolic function. LEFT ATRIUM The left atrial size is normal. RIGHT ATRIUM The right atrial size is normal. ATRIAL SEPTUM Normal atrial septal thickness without atrial level shunting by limited color doppler interrogation. AORTA The aortic root and proximal ascending aorta are normal in size on limited imaging. MITRAL VALVE Structurally normal mitral valve. No mitral valve stenosis or regurgitation. AORTIC VALVE Trileaflet aortic valve. No aortic valve stenosis or regurgitation. TRICUSPID VALVE Structurally normal tricuspid valve. No tricuspid valve stenosis or regurgitation. PULMONARY VALVE The pulmonary valve is not well visualized. VESSELS The inferior vena cava is normal in size. PERICARDIUM No pericardial effusion. Ruiz Pratt MD (Electronically Signed) Final Date:23 January 2018 17:12
[2018-01-24] MEDS: Clindamycin 900 mg/NS Premix 900 MG/50 ML PIGGYBACK IV.SIG SCH ×2 (00:44→08:41)
[2018-01-24] MEDS: Vancomycin Inj 1,000 MG in Sodium Chlor 0.9% Inj 250 ML IV.SIG SCH ×3 (04:06→21:58)
[2018-01-24 09:20] LABS: Baso % (Auto) 0.4 % (0.0-2.0); Eos # (Auto) 0.2 th/mm3 (0.0-0.4); Hematocrit 37.7 % (39.0-51.0); Hemoglobin 12.8 gm/dL (13.0-17.0); Lymph # (Auto) 2.9 th/mm3 (1.0-4.8); Lymph % (Auto) 32.9 % (9.0-44.0); Mean Corpuscular Volume 88.4 fL (80.0-100.0); Mean Platelet Volume 8.7 fL (7.0-11.0); Mono # (Auto) 0.6 th/mm3 (0.0-0.9); Mono % (Auto) 6.9 % (0.0-8.0); Neut # (Auto) 5.1 th/mm3 (1.8-7.7); Neut % (Auto) 57.8 % (16.0-70.0); Platelet Count 250 th/mm3 (150-450); Red Blood Count 4.26 mil/mm3 (4.50-5.90); Red Cell Distribution Width 13.7 % (11.6-17.2); White Blood Count 8.9 th/mm3 (4.0-11.0)
[2018-01-24 09:51] LABS: Free T4 (Free Thyroxine) 4.21 ng/dL (0.76-1.46); Thyroid Stimulating Hormone 1.17 uIU/mL (0.358-3.740)
[2018-01-24] MEDS: Ciprofloxacin 400 MG/200 ML 400 MG/200 ML PIGGYBACK IV.SIG SCH ×2 (11:21→23:26)
[2018-01-24] MEDS ORDERED: Pharmacy Ordered Lab Info OTHER ONE (11:45)
[2018-01-24] MEDS: Senna/Docusate Sodium 8.6/50 MG Tablet PO SCH ×2 (12:14→21:59)
[2018-01-24 13:20] LABS: Alanine Aminotransferase 145 U/L (12-78); Albumin 2.8 g/dL (3.4-5.0); Alkaline Phosphatase 84 U/L (45-117); Anion Gap 8 meq/L (5-15); Aspartate Aminotransferase 102 U/L (15-37); Blood Urea Nitrogen 14 mg/dL (7-18); Calcium 8.5 mg/dL (8.5-10.1); Carbon Dioxide 26.9 meq/L (21.0-32.0); Chloride 108 meq/L (98-107); Glomerular Filtration Rate Greater Than 89 mL/min (>89); Glucose,Random 73 mg/dL (74-106); Phosphorus 4.3 mg/dL (2.5-4.9); Potassium 4.4 meq/L (3.5-5.1); Sodium 143 meq/L (136-145); Total Protein 7.1 g/dL (6.4-8.2); Vancomycin,Trough 25.8 mcg/mL (5.0-10.0)
--- NOTE | 2018-01-24 14:16 | P.PNIM ---
Subjective Interval history: This is a 27-year-old male with PMH of IVDU who presented to ER after having LUE Biceps Abscess drained at [facility]. Per records, pt initially presented to [facility] 01/17/18 for LUE swelling/erythema, diagnosed w/ thrombophlebitis and sent out on antibiotics, however pt didn't fill prescription. Returned to [facility] on 01/20/18 w/ worsening erythema/pain, admitted for Sepsis w/ Left Biceps Cellulitis and Abscess, CT LUE showing diffuse myositis of biceps w/ abscess, Doppler LUE negative for DVT. Was seen by Dr. Martinez and underwent I& D w/ drain placement 01/21/18, has been on Vanc/Clinda/Cipro. States he LEFT AMA from because he was upset that nursing staff wouldn't allow his mother to visit him. Reports no IVDU for 2wks. On arrival, BP 156/94, HR 99, O2 sat 99% on RA, Afebrile. WBC 18.5. Chemistry unremarkable. CT Humerus soft tissue edema and gas around biceps muscle, surgical drain seen within the biceps muscle. Dr. Martinez consulted, recommended admission for continued antibiotics. 01-23 SEEN BY ID AND ORTHO ON VANCO AND CIPRO ECHO DW ID AND RN AND CM AM LABS 01-24 CONTINUE ANTIBIOTICS Physical Exam Vital signs: Vital Signs 01/23/18 16:00 01/23/18 20:00 01/24/18 08:00 Temperature 98.2 F 98.1 F 98.5 F Pulse Rate 76 77 75 Respiratory Rate 14 19 12 Blood Pressure 145/97 H 148/95 H 167/110 H Pulse Oximetry 98 100 99 01/24/18 12:00 Temperature 98.0 F Pulse Rate 73 Respiratory Rate 16 Blood Pressure 142/92 H Pulse Oximetry 99 Intake & Output 01/23/18 01/24/18 01/24/18 18:59 06:59 18:59 Intake Total 550 / 550 500 / 500 300 / 300 Output Total 300 / 300 Balance 250 / 250 500 / 500 300 / 300 Weight 72.7 kg Intake: IV 550 / 550 500 / 500 300 / 300 Cipro 400 MG/200 ML Inj 400 mg 200 / 200 200 / 200 In 200 ml @ 200 mls/hr IV.SIG Q12H [facility] Rx#:[id number] Cleocin 900 mg/NS Premix 900 mg 100 / 100 50 / 50 50 / 50 In 50 ml @ 100 mls/hr IV.SIG Q8H [facility] Rx#:[id number] Vancomycin Inj 1,000 MG In NS 250 / 250 250 / 250 250 / 250 Inj 250 ML @ 250 mls/hr IV.SIG Q8H [facility] Rx#:[id number] Output: Urine 300 / 300 Other: # Voids 4 Date of Last Bowel Movement 01/23/18 01/23/18 01/23/18 # Bowel Movements 1 Narrative: GENERAL: Pleasant young white male in no acute distress. SKIN: Focused skin assessment warm and dry. HEENT: PERRLA, EOMI. No scleral icterus or conjunctival pallor. No lid lag or facial droop. CARDIOVASCULAR: Regular rate and rhythm. No obvious murmurs to auscultation. No chest tenderness to palpation. RESPIRATORY: No obvious rhonchi or wheezing. Clear to auscultation. Breath sounds equal bilaterally. GASTROINTESTINAL: Abdomen soft, non-tender, nondistended. BS normal. MUSCULOSKELETAL: Extremities without clubbing, cyanosis, or edema. No obvious deformities. LUE bandage in place, +drain. NEUROLOGICAL: Awake, alert and oriented x4. No focal neurologic deficits. Moving both upper and lower extremities spontaneously. PSYCHIATRIC: Appropriate mood and affect. Insight and judgment normal. Results - Labs CBC & Chem 7: 01/24/18 07:28 01/24/18 12:15 Laboratory Results - last 24 hr 01/24/18 01/24/18 01/24/18 07:28 07:28 12:15 WBC 8.9 RBC 4.26 L Hgb 12.8 L Hct 37.7 L MCV 88.4 MCH 30.0 MCHC 34.0 RDW 13.7 Plt Count 250 MPV 8.7 Neut % (Auto) 57.8 Lymph % (Auto) 32.9 [place] % (Auto) 6.9 Eos % (Auto) 2.0 Baso % (Auto) 0.4 Neut # (Auto) 5.1 Lymph # (Auto) 2.9 [place] # (Auto) 0.6 Eos # (Auto) 0.2 Baso # (Auto) 0.0 WBC Differential . Differential Comment Auto diff final Sodium 143 Potassium 4.4 Chloride 108 H Carbon Dioxide 26.9 Anion Gap 8 BUN 14 Creatinine 0.82 Estimated GFR Greater than 89 Random Glucose 73 L Calcium 8.5 Phosphorus 4.3 Magnesium 2.0 Total Bilirubin 0.3 AST 102 H ALT 145 H Alkaline Phosphatase 84 Total Protein 7.1 D Albumin 2.8 L TSH 1.170 Free T4 4.21 H Vancomycin Trough 25.8 H Assessment and Plan - Assessment (1) Cellulitis and abscess of upper arm and forearm Status: Acute (2) IVDU (intravenous drug user) Code(s): F19.90 - Other psychoactive substance use, unspecified, uncomplicated Status: Acute - Plan 1. LUE Cellulitis/Abscess: recent admit to [facility] 01/20/18, CT LUE w/ diffuse myositis and abscess of biceps muscle, s/p I&D w/ drain placement by Dr. Martinez 01/21/18, LEFT AMA and presents here for admission. CT Humerus w/ soft tissue edema and gas w/ surgical drain indicative of recent surgery, images reviewed. Records obtained from [facility] and in chart, pending micro from surgical cultures. Continue w/ IV Vanc/Cipro/Clinda, consult ID for further eval/recommendations. Consult Dr. Martinez. DW ID 2. IVDU: Reports last use 2wks ago, Ativan prn as needed. - PROBABLY MORE RECENT 3. DVT Prophylaxis: SCD/Teds 4. Social work for d/c planning as needed Code Status: FULL CODE Discussed Condition With: RN AND PT AND CM Discharge Planning: WILL NEED ANTIBIOTICS PER ID
--- NOTE | 2018-01-25 08:00 | P.PNOP ---
Subjective Interval history: Pain controlled, resting comfortably. Physical Exam Vital signs: Vital Signs 01/24/18 08:00 01/24/18 12:00 01/24/18 16:00 Temperature 98.5 F 98.0 F 97.5 F L Pulse Rate 75 73 69 Respiratory Rate 12 16 18 Blood Pressure 167/110 H 142/92 H 158/97 H Pulse Oximetry 99 99 94 L 01/24/18 20:00 01/24/18 23:33 Temperature 98.0 F 97.5 F L Pulse Rate 74 76 Respiratory Rate 18 16 Blood Pressure 146/94 H 133/80 Pulse Oximetry 99 98 Intake & Output 01/24/18 01/25/18 01/25/18 18:59 06:59 18:59 Intake Total 500 / 500 700 / 700 Balance 500 / 500 700 / 700 Weight 72.5 kg Intake: IV 500 / 500 700 / 700 Cipro 400 MG/200 ML Inj 400 mg 200 / 200 200 / 200 In 200 ml @ 200 mls/hr IV.SIG Q12H [facility] Rx#:[id number] Cleocin 900 mg/NS Premix 900 mg 50 / 50 In 50 ml @ 100 mls/hr IV.SIG Q8H [facility] Rx#:[id number] Vancomycin Inj 1,000 MG In NS 250 / 250 500 / 500 Inj 250 ML @ 250 mls/hr IV.SIG Q12H CON[facility] Rx#:[id number] Other: # Voids 3 Date of Last Bowel Movement 01/23/18 01/23/18 Narrative: Left upper extremity with clean dry dressings intact. Intact sensation distally over the radial ulnar and median nerves capillary refills. Results - Labs CBC & Chem 7: 01/24/18 07:28 01/24/18 12:15 Laboratory Results - last 24 hr 01/24/18 01/24/18 01/24/18 07:28 07:28 12:15 WBC 8.9 RBC 4.26 L Hgb 12.8 L Hct 37.7 L MCV 88.4 MCH 30.0 MCHC 34.0 RDW 13.7 Plt Count 250 MPV 8.7 Neut % (Auto) 57.8 Lymph % (Auto) 32.9 [place] % (Auto) 6.9 Eos % (Auto) 2.0 Baso % (Auto) 0.4 Neut # (Auto) 5.1 Lymph # (Auto) 2.9 [place] # (Auto) 0.6 Eos # (Auto) 0.2 Baso # (Auto) 0.0 WBC Differential . Differential Comment Auto diff final Sodium 143 Potassium 4.4 Chloride 108 H Carbon Dioxide 26.9 Anion Gap 8 BUN 14 Creatinine 0.82 Estimated GFR Greater than 89 Random Glucose 73 L Calcium 8.5 Phosphorus 4.3 Magnesium 2.0 Total Bilirubin 0.3 AST 102 H ALT 145 H Alkaline Phosphatase 84 Total Protein 7.1 D Albumin 2.8 L TSH 1.170 Free T4 4.21 H Vancomycin Trough 25.8 H Assessment and Plan - Assessment and Plan Abscess with irrigation debridement of left biceps POD 4 Daily dressing changes POD 2. Xeroform over the incision and Consultation for infectious disease for antibiotic management Occupational therapy for passive and active range of motion of shoulder and elbow Once antibiotics are arranged discharge can be completed. Orthopedically cleared for discharge
[2018-01-25] MEDS: Senna/Docusate Sodium 8.6/50 MG Tablet PO SCH ×2 (09:31→20:40)
[2018-01-25] MEDS: Vancomycin Inj 1,000 MG in Sodium Chlor 0.9% Inj 250 ML IV.SIG SCH (09:32)
--- NOTE | 2018-01-25 11:28 | P.PNIM ---
Subjective Interval history: This is a 27-year-old male with PMH of IVDU who presented to ER after having LUE Biceps Abscess drained at [facility]. Per records, pt initially presented to [facility] 01/17/18 for LUE swelling/erythema, diagnosed w/ thrombophlebitis and sent out on antibiotics, however pt didn't fill prescription. Returned to [facility] on 01/20/18 w/ worsening erythema/pain, admitted for Sepsis w/ Left Biceps Cellulitis and Abscess, CT LUE showing diffuse myositis of biceps w/ abscess, Doppler LUE negative for DVT. Was seen by Dr. Martinez and underwent I& D w/ drain placement 01/21/18, has been on Vanc/Clinda/Cipro. States he LEFT AMA from because he was upset that nursing staff wouldn't allow his mother to visit him. Reports no IVDU for 2wks. On arrival, BP 156/94, HR 99, O2 sat 99% on RA, Afebrile. WBC 18.5. Chemistry unremarkable. CT Humerus soft tissue edema and gas around biceps muscle, surgical drain seen within the biceps muscle. Dr. Martinez consulted, recommended admission for continued antibiotics. 01-23 SEEN BY ID AND ORTHO ON VANCO AND CIPRO ECHO DW ID AND RN AND CM AM LABS 01-24 CONTINUE ANTIBIOTICS 01-25 ANTIBIOTICS PER ID WILL NEED ASSISTED??? HX OF IVDU POOR RISK FOR PICC DW RN AND PT AND CM AND ID STARTED ON CLINDA IF STABLE AND TOLERATED WILL PROBABLY BE DISCHARGED TO HOME ON PO CLINDAMYCIN TOMORROW PER ID RECOMMENDATIONS Physical Exam Vital signs: Vital Signs 01/24/18 12:00 01/24/18 16:00 01/24/18 20:00 Temperature 98.0 F 97.5 F L 98.0 F Pulse Rate 73 69 74 Respiratory Rate 16 18 18 Blood Pressure 142/92 H 158/97 H 146/94 H Pulse Oximetry 99 94 L 99 01/24/18 23:33 01/25/18 08:00 Temperature 97.5 F L 97.4 F L Pulse Rate 76 76 Respiratory Rate 16 20 Blood Pressure 133/80 141/96 H Pulse Oximetry 98 100 Intake & Output 01/24/18 01/25/18 01/25/18 18:59 06:59 18:59 Intake Total 500 / 500 700 / 700 Balance 500 / 500 700 / 700 Weight 72.5 kg Intake: IV 500 / 500 700 / 700 Cipro 400 MG/200 ML Inj 400 mg 200 / 200 200 / 200 In 200 ml @ 200 mls/hr IV.SIG Q12H [facility] Rx#:[id number] Cleocin 900 mg/NS Premix 900 mg 50 / 50 In 50 ml @ 100 mls/hr IV.SIG Q8H [facility] Rx#:[id number] Vancomycin Inj 1,000 MG In NS 250 / 250 500 / 500 Inj 250 ML @ 250 mls/hr IV.SIG Q12H CONY Rx#:[id number] Other: # Voids 3 Date of Last Bowel Movement 01/23/18 01/23/18 Narrative: GENERAL: Pleasant young white male in no acute distress. SKIN: Focused skin assessment warm and dry. HEENT: PERRLA, EOMI. No scleral icterus or conjunctival pallor. No lid lag or facial droop. CARDIOVASCULAR: Regular rate and rhythm. No obvious murmurs to auscultation. No chest tenderness to palpation. RESPIRATORY: No obvious rhonchi or wheezing. Clear to auscultation. Breath sounds equal bilaterally. GASTROINTESTINAL: Abdomen soft, non-tender, nondistended. BS normal. MUSCULOSKELETAL: Extremities without clubbing, cyanosis, or edema. No obvious deformities. LUE bandage in place, +drain. NEUROLOGICAL: Awake, alert and oriented x4. No focal neurologic deficits. Moving both upper and lower extremities spontaneously. PSYCHIATRIC: Appropriate mood and affect. Insight and judgment normal. Results - Labs CBC & Chem 7: 01/24/18 07:28 01/24/18 12:15 Laboratory Results - last 24 hr 01/24/18 12:15 Sodium 143 Potassium 4.4 Chloride 108 H Carbon Dioxide 26.9 Anion Gap 8 BUN 14 Creatinine 0.82 Estimated GFR Greater than 89 Random Glucose 73 L Calcium 8.5 Phosphorus 4.3 Magnesium 2.0 Total Bilirubin 0.3 AST 102 H ALT 145 H Alkaline Phosphatase 84 Total Protein 7.1 D Albumin 2.8 L Vancomycin Trough 25.8 H - Imaging ITS Impressions Humerus CT 01/21/18 21:27 CONCLUSION: Soft tissue edema and gas and around the biceps muscle. Surgical drain also seen within the biceps muscle and cutaneous jeanette overlie muscle. Findings indicate recent surgery. Edema and gas are nonspecific and could represent immediate postsurgical findings or findings of infection. No defined abscess or bone erosion identified. - Procedures NONE Assessment and Plan - Assessment (1) Cellulitis and abscess of upper arm and forearm Status: Acute (2) IVDU (intravenous drug user) Code(s): F19.90 - Other psychoactive substance use, unspecified, uncomplicated Status: Acute - Plan 1. LUE Cellulitis/Abscess: recent admit to [facility] 01/20/18, CT LUE w/ diffuse myositis and abscess of biceps muscle, s/p I&D w/ drain placement by Dr. Martinez 01/21/18, LEFT AMA and presents here for admission. CT Humerus w/ soft tissue edema and gas w/ surgical drain indicative of recent surgery, images reviewed. Records obtained from [facility] and in chart, pending micro from surgical cultures. Continue w/ IV Vanc/Cipro, consult ID for further eval/ recommendations. Consult Dr. Martinez. DW ID---ID TO DETERMINE LENGTH OF ANTIBIOTICS SWITCHED TO IV CLINDAMYCIN-- IF TOLERATED THEN DC ON PO CLINDAMYCIN TOMORROW 2. IVDU: Reports last use 2wks ago, Ativan prn as needed. - PROBABLY MORE RECENT 3. DVT Prophylaxis: SCD/Teds 4. Social work for d/c planning as needed Code Status: FULL CODE Discussed Condition With: PT AND RN AND CM AND ID Discharge Planning: WILL NEED ANTIBIOTICS PER ID
--- NOTE | 2018-01-25 12:38 | P.PNID ---
Subjective Remarks: Patient is a 27-year-old male, presented to the hospital for further management of the abscess in his left upper extremity. His problem started around January 18 when he started having some pain over his left antecubital fossa. Patient has known IV drug use, but denies any injection in his upper arm. He stated that the last time he had used IV drugs was about 2 weeks prior to his admission at [facility]. He does not recall having any injury. He does a lot of manual work. He went to the emergency room at [facility] on January 18, and looks like he was diagnosed with some kind of a phlebitis, was given some medications and I believe some antibiotics. Patient however did not take his medication, and soon after that he started noticing redness going up his upper arm. It was getting more painful and swollen, so he went back to [facility] and he was admitted on January 20. He was admitted as sepsis, and imaging study showed evidence of abscess in his biceps. He underwent I&D of the abscess in the biceps area. Patient however signed out AMA after his surgery, and presented here at [facility] for further evaluation and treatment. He is currently afebrile. His white count on admission was 18,000. CT of the left upper extremity showing evidence of edema and some gas in the biceps, but no drainable abscess seen. Infectious disease consultation has been requested to assist with treatment and antibiotic management. Notes reviewed No fever feels much improved C/S from [facility] with MSSA and Strep intermedius BC negative Echo ok Antibiotics: Vancomycin Cipro Lines: PIV Past Medical History: Asthma IVDU Allergies/Adverse Reactions: Allergies Iodinated Contrast- Oral and IV Dye [Contrast] Allergy (Verified 01/21/18 20:18) Edema penicillin G Allergy (Verified 01/25/18 12:31) Rash CILLINS Allergy (Uncoded 01/25/18 12:32) Rash Objective Vital Signs 01/24/18 16:00 01/24/18 20:00 01/24/18 23:33 Temperature 97.5 F L 98.0 F 97.5 F L Pulse Rate 69 74 76 Respiratory Rate 18 18 16 Blood Pressure 158/97 H 146/94 H 133/80 Pulse Oximetry 94 L 99 98 01/25/18 08:00 01/25/18 11:53 Temperature 97.4 F L Pulse Rate 76 Respiratory Rate 20 17 Blood Pressure 141/96 H Pulse Oximetry 100 Intake & Output 01/24/18 01/25/18 01/25/18 18:59 06:59 18:59 Intake Total 500 / 500 700 / 700 Balance 500 / 500 700 / 700 Weight 72.5 kg Intake: IV 500 / 500 700 / 700 Cipro 400 MG/200 ML Inj 400 mg 200 / 200 200 / 200 In 200 ml @ 200 mls/hr IV.SIG Q12H [facility] Rx#:[id number] Cleocin 900 mg/NS Premix 900 mg 50 / 50 In 50 ml @ 100 mls/hr IV.SIG Q8H [facility] Rx#:[id number] Vancomycin Inj 1,000 MG In NS 250 / 250 500 / 500 Inj 250 ML @ 250 mls/hr IV.SIG Q12H CONY Rx#:[id number] Other: # Voids 3 Date of Last Bowel Movement 01/23/18 01/23/18 Lab - Hematology Results 01/24/18 07:28 WBC 8.9 RBC 4.26 L Hgb 12.8 L Hct 37.7 L MCV 88.4 MCH 30.0 MCHC 34.0 RDW 13.7 Plt Count 250 MPV 8.7 Neut % (Auto) 57.8 Lymph % (Auto) 32.9 [place] % (Auto) 6.9 Eos % (Auto) 2.0 Baso % (Auto) 0.4 Neut # (Auto) 5.1 Lymph # (Auto) 2.9 [place] # (Auto) 0.6 Eos # (Auto) 0.2 Baso # (Auto) 0.0 WBC Differential . Differential Comment Auto diff final Lab - Chemistry Results 01/24/18 01/24/18 07:28 12:15 Sodium 143 Potassium 4.4 Chloride 108 H Carbon Dioxide 26.9 Anion Gap 8 BUN 14 Creatinine 0.82 Estimated GFR Greater than 89 Random Glucose 73 L Calcium 8.5 Phosphorus 4.3 Magnesium 2.0 Total Bilirubin 0.3 AST 102 H ALT 145 H Alkaline Phosphatase 84 Total Protein 7.1 D Albumin 2.8 L TSH 1.170 Free T4 4.21 H Imaging: ITS Impressions Humerus CT 01/21/18 21:27 CONCLUSION: Soft tissue edema and gas and around the biceps muscle. Surgical drain also seen within the biceps muscle and cutaneous jeanette overlie muscle. Findings indicate recent surgery. Edema and gas are nonspecific and could represent immediate postsurgical findings or findings of infection. No defined abscess or bone erosion identified. Physical Exam: GENERAL: awake and alert, not in respiratory distress. SKIN: Cool and dry. No generalized rash, no ecchymoses and no evidence of embolic lesions. Has trach jovel both hands and forearms HEAD: Atraumatic. Normocephalic. No temporal wasting, or tenderness. EYES: Potter conjunctiva. No petechia or hemorrhage. Pupils equal, round and reactive to light. Extraocular movements full and intact. No scleral icterus. No injection or drainage. EARS, NOSE AND THROAT: Nose without bleeding or purulent nasal discharge. No sinus tenderness. Mucous membranes pink and moist. No oral lesions noted. No exudate. No oral thrush. NECK: Trachea midline. Supple and not tender, no meningeal signs CARDIOVASCULAR: Regular rate and rhythm. No murmurs, rubs or gallops heard RESPIRATORY: Clear to auscultation. Breath sounds equal bilaterally. No rales , wheezing or rhonchi ABDOMEN: Soft, non-tender, nondistended. Bowel sounds present and normoactive. No guarding. No rebound. No organomegaly. EXTREMITIES: No clubbing, cyanosis, or edema. Dry incision in L upper arm, no redness, not indurated, no drainage, able to flex at elbow with no pain. No joint effusion, has good ROM. No calf tenderness. NEUROLOGICAL: Grossly non-focal. PSYCHIATRIC: Normal affect, calm and cooperative. LINE: No evidence of infection Assessment and Plan - Plan Impression Biceps muscle abscess L, S/P I and D - C/S MSSA and Strep inetrmedius No evidence of DVT LUE Known IVDU Rash to PCN Recommendation Change to IV Ancef I've looked at previous ED visits, and he has tolerated Cephalosporins in the past If Ancef tolerated, will D/C home of Keflex and plan 21 more days on D/C If not tolerated, will look at Clindamycin Monitor progress ADDENDUM: Patient states he had a severe reaction to PCN Generalized rash and had some breathing problems Will stop ANcef Use IV Clindamycin - and if no problem use Clinda to complete Rx D/W RN
[2018-01-25] MEDS ORDERED: ceFAZolin Inj 2,000 MG in Sodium Chlor 0.9% Inj 80 ML IV.SIG SCH (13:00)
[2018-01-25] MEDS: Ciprofloxacin 400 MG/200 ML 400 MG/200 ML PIGGYBACK IV.SIG SCH (13:38)
[2018-01-25] MEDS: Clindamycin 900 mg/NS Premix 900 MG/50 ML PIGGYBACK IV.SIG SCH ×2 (16:16→23:16)
[2018-01-25] MEDS ORDERED: Pharmacy Ordered Lab Info OTHER ONE (20:45)
[2018-01-26] MEDS: Clindamycin 900 mg/NS Premix 900 MG/50 ML PIGGYBACK IV.SIG SCH (06:25)
[2018-01-26 09:09] VITALS: BP 120/65; PULSE 79; RESP 16; TEMP 98.5; O2SAT 99
[2018-01-26] MEDS: Senna/Docusate Sodium 8.6/50 MG Tablet PO SCH (09:16)
--- NOTE | 2018-01-26 11:11 | P.PNIM ---
Subjective Interval history: Mr. Rosenberg was afebrile with stable VS overnight. Patient seen with his girlfriend; he states that he is doing ok at this time but still has intermittent L UE pain. No reported chest pain, shortness of breath, abnormal oral intake, or abnormal BN/urination. Patient reports some concern about what type of infection he has and whether oral antibiotics will be ideal; results discussed. Physical Exam Vital signs: Vital Signs 01/25/18 11:53 01/25/18 12:00 01/25/18 16:00 Temperature 98.0 F 97.9 F Pulse Rate 83 70 Respiratory Rate 17 20 20 Blood Pressure 143/84 H 143/99 H Pulse Oximetry 100 99 01/25/18 20:00 01/26/18 00:00 01/26/18 07:00 Temperature 98.6 F 97.4 F L Pulse Rate 92 H 85 Respiratory Rate 20 20 46 H Blood Pressure 151/91 H 122/68 Pulse Oximetry 100 98 01/26/18 09:07 Temperature 98.5 F Pulse Rate 79 Respiratory Rate 16 Blood Pressure 120/65 Pulse Oximetry 99 Intake & Output 01/25/18 01/26/18 01/26/18 18:59 06:59 18:59 Intake Total 300 / 300 50 / 50 50 / 50 Balance 300 / 300 50 / 50 50 / 50 Weight 77.7 kg Intake: IV 300 / 300 50 / 50 50 / 50 Cleocin 900 mg/NS Premix 900 mg 50 / 50 50 / 50 50 / 50 In 50 ml @ 100 mls/hr IV.SIG Q8H [facility] Rx#:[id number] Vancomycin Inj 1,000 MG In NS 250 / 250 Inj 250 ML @ 250 mls/hr IV.SIG Q12H CONY Rx#:[id number] Other: # Voids 3 Date of Last Bowel Movement 01/23/18 # Bowel Movements 1 Narrative: GENERAL: No acute distress. SKIN: Focused skin assessment warm and dry. LUE HEENT: EOMI. No scleral icterus CARDIOVASCULAR: Regular rate and rhythm; normal perfusion. RESPIRATORY: CTAB; normal rate. GASTROINTESTINAL: Abdomen soft, non-tender, nondistended. BS normal MUSCULOSKELETAL: Extremities without clubbing, cyanosis, or edema. No obvious deformities. LUE incision with jeanette; appears well healed NEUROLOGICAL: Awake, alert and oriented x4. No focal neurologic deficits. Moving both upper and lower extremities spontaneously. PSYCHIATRIC: Appropriate mood and affect. Insight and judgment normal. Results - Labs CBC & Chem 7: 01/24/18 07:28 01/24/18 12:15 - Procedures NONE Assessment and Plan - Assessment (1) Cellulitis and abscess of upper arm and forearm Status: Acute (2) IVDU (intravenous drug user) Code(s): F19.90 - Other psychoactive substance use, unspecified, uncomplicated Status: Acute - Plan Mr. Rosenberg is a 27 yo M with: LUE Cellulitis/Abscess History: Pain in LUE 01/18; no known injury or abrasion to LUE but patient has IVDU history. Patient seen at [facility] meeting sepsis criteria;CT LUE w/ diffuse myositis and abscess of biceps muscle. I/D performed 01/21. Patient signed out AMA and arrived to [facility]. Per EMR review, C/S at with MSSA and strep intermedius -Ortho consulted -POD 5 today from I/D -daily dressing changes -ID consult; can be discharged once antibiotics arranged -OT for passive/active ROM -ID consulted -Vanc/Cipro stopped -Patient placed on IV Clindamycin due to prior severe PCN reaction; if no issues can be discharged on oral Clindamycin (x3 weeks) Social work for d/c planning as needed -Antibiotics arranged due to lack of finances -will f/u with ortho for staple removal and [place] vs [facility] DVT Prophylaxis: SCD/Teds Code Status: Full code Discharge Planning: D/C today on oral Clinda; f/u with Ortho in ~10 days and with new PCP at [facility]
--- NOTE | 2018-02-01 00:10 | P.DS ---
Date of admission: 01/22/18 00:33 Primary care physician: UNKNOWN Attending physician on discharge: Gael Rosales Anticipated date of discharge: 01/26/18 Brief History from admission: This is a 27-year-old male with PMH of IVDU who presented to ER after having LUE Biceps Abscess drained at [facility]. Per records, pt initially presented to [facility] 01/17/18 for LUE swelling/erythema, diagnosed w/ thrombophlebitis and sent out on antibiotics, however pt didn't fill prescription. Returned to [facility] on 01/20/18 w/ worsening erythema/pain, admitted for Sepsis w/ Left Biceps Cellulitis and Abscess, CT LUE showing diffuse myositis of biceps w/ abscess, Doppler LUE negative for DVT. Was seen by Dr. Martinez and underwent I& D w/ drain placement 01/21/18, has been on Vanc/Clinda/Cipro. States he LEFT AMA from because he was upset that nursing staff wouldn't allow his mother to visit him. Reports no IVDU for 2wks. On arrival, BP 156/94, HR 99, O2 sat 99% on RA, Afebrile. WBC 18.5. Chemistry unremarkable. CT Humerus soft tissue edema and gas around biceps muscle, surgical drain seen within the biceps muscle. Dr. Martinez consulted, recommended admission for continued antibiotics. Patient update on day of discharge: Mr. Rosenberg was afebrile with stable VS overnight. Patient seen with his girlfriend; he states that he is doing ok at this time but still has intermittent L UE pain. No reported chest pain, shortness of breath, abnormal oral intake, or abnormal BN/urination. Patient reports some concern about what type of infection he has and whether oral antibiotics will be ideal; results discussed. DS: Diagnosis - Discharge Diagnosis (1) Cellulitis and abscess of upper arm and forearm Status: Acute (2) IVDU (intravenous drug user) Status: Acute DS: Medications - Discharge Medications Prescriptions: clindamycin HCl 300 mg PO TID #63 cap hydrocodone-acetaminophen 1 tab PO Q6H PRN #12 tab PRN Reason: Acute Pain DS: Summary Hospital Course: Mr. Rosenberg is a 27 yo M w/ PMH IVDU with left UE cellulitis / abscess. Patient recently hospitalized at . Patient seen at [facility] meeting sepsis criteria; CT LUE w/ diffuse myositis and abscess of biceps muscle. I/D performed 01/21. Patient signed out AMA and arrived to [facility]. Per EMR review, C/S at with MSSA and strep intermedius. On admission to [facility], BP 156/94, HR 99, O2 sat 99% on RA, Afebrile. WBC 18.5. Chemistry unremarkable. CT Humerus soft tissue edema and gas around biceps muscle, surgical drain seen within the biceps muscle. Orthopedic surgery and infectious disease consulted. patient initially placed on Vancomycin/ Ciprofloxacin; this was changed by ID to IV clindamycin. Patient was discharged home 01/26 on oral Clindamycin Per ED x3 week course. Patient received OT during hospitalization. Case management assisted in patient acquiring medications and follow-up with P[facility] Chauhan. - Time Spent with Patient Total time spent providing and/or coordinating discharge services: Less than 30 minutes - Quality: VTE Deep Vein Thrombosis/Pulmonary Embolism Present on Admission: No Exam Vital signs: Initial Documented Vital Signs Temperature 98.4 F 01/21/18 20:18 Pulse Rate 99 H 01/21/18 20:18 Respiratory Rate 18 01/21/18 20:18 Blood Pressure 156/94 H 01/21/18 20:18 Pulse Oximetry 99 01/21/18 20:18 Last Documented Vital Signs Temperature 98.5 F 01/26/18 09:07 Pulse Rate 79 01/26/18 09:07 Respiratory Rate 16 01/26/18 09:07 Blood Pressure 120/65 01/26/18 09:07 Pulse Oximetry 99 01/26/18 09:07 Narrative: GENERAL: No acute distress. SKIN: Focused skin assessment warm and dry. LUE HEENT: EOMI. No scleral icterus CARDIOVASCULAR: Regular rate and rhythm; normal perfusion. RESPIRATORY: CTAB; normal rate. GASTROINTESTINAL: Abdomen soft, non-tender, nondistended. BS normal MUSCULOSKELETAL: Extremities without clubbing, cyanosis, or edema. No obvious deformities. LUE incision with jeanette; appears well healed NEUROLOGICAL: Awake, alert and oriented x4. No focal neurologic deficits. Moving both upper and lower extremities spontaneously. PSYCHIATRIC: Appropriate mood and affect. Insight and judgment normal Results Procedures completed during hospitalization: NONE - Impressions ITS Impressions Humerus CT 01/21/18 21:27 CONCLUSION: Soft tissue edema and gas and around the biceps muscle. Surgical drain also seen within the biceps muscle and cutaneous jeanette overlie muscle. Findings indicate recent surgery. Edema and gas are nonspecific and could represent immediate postsurgical findings or findings of infection. No defined abscess or bone erosion identified. Discharge Plan - Discharge Disposition Patient Disposition: 01 Discharge Home - Discharge Condition Condition: Stable - Discharge Order Discharge Orders: Discharge Order (Routine); Ordered 01/26/18 Ordered By: Gael Rosales Orthopedic Clear for Discharge (Routine); Ordered 01/25/18 Ordered By: Jose Antonio Kaplan - Discharge Details Anticipated Discharge Date: 01/26/18 Discharge Comment: Patient states he does not have money to fill Clindamycin; case management assistance if possible, thanks - Physicians Team Primary Care Provider: UNKNOWN, Attending Provider: Gael Rosales Other Providers: Jessee Martinez MD ; Meaghan Fuentes MD
== END 2018-01-26 12:40 | disposition home or self-care (01) ==
LOC: NEPC 19:48 → NEDA 01-22 00:33 → N05 01-22 01:27
PROVIDERS: ADMIT Family Medicine; ATTEND Family Medicine